=== PATIENT | male | born 1940 | race Caucasian/White ===

== ENCOUNTER 2017-03-30 20:09 | Emergency (ER) | payer OTHER ==
[2017-03-30] MEDS ORDERED: MORPHINE 2 MG/ML SYRINGE IVP STA (20:17)
[2017-03-30] MEDS ORDERED: ZOFRAN 4 MG/2 ML IVP STA ×2 (20:17→21:25)
[2017-03-30 20:27] VITALS: BP 144/77; TEMP 101.4; BMI 32.1
[2017-03-30 20:46] LABS: BASOPHILS % (AUTO) 0.6 % (0.0-3.0); EOSINOPHILS % (AUTO) 0.7 % (0.0-7.0); HEMATOCRIT 39.9 % (42.0-52.0); HEMOGLOBIN 13.2 g/dl (14.0-18.0); IMMATURE GRANULOCYTE % (AUTO) 0.4 % (0.0-5.0); LYMPHOCYTES # (AUTO) 0.4 K/uL (0.60-3.4); LYMPHOCYTES % (AUTO) 6.5 (10.0-50.0); MEAN CORPUSCULAR HEMOGLOBIN 30.7 pg (27.0-31.0); MEAN CORPUSCULAR HGB CONC 33.1 (31.8-35.4); MEAN CORPUSCULAR VOLUME 92.8 fl (80.0-94.0); MONOCYTES # (AUTO) 0.4 K/uL (0.4-2.0); MONOCYTES % (AUTO) 6.5 (0-10); NEUTROPHILS # (AUTO) 4.6 K/ul (2.0-6.9); NEUTROPHILS % (AUTO) 85.3; PLATELET COUNT 136 10^3/uL (140-440); WHITE BLOOD COUNT 5.38 K/ul (4.2-10.2)
--- NOTE | 2017-03-30 20:50 | ED.PDOC ---
General ED Provider: Dr. SHIRLEY MCKEON Chief Complaint: Nausea/Vomiting Stated Complaint: been feeling nauseous for whole day, travelling [facility], from [place]. last time he felt like this had SD,. also has more fluid in legs and belly. Time Seen by Physician: 20:48 Mode of Arrival: Walk-In Information Source: Patient Nursing and Triage Documentation Reviewed and Agree: Yes GI Complaint Exam - Vomiting/Diarrhea Complaint/Exam Onset/Duration: been feeling nausea. Symptoms Are: Still present Episodes of Vomiting over last 24 Hours: 0 Initial Severity: Mild Current Severity: Mild Aggravating: Reports: Food, Liquids, Position, Movement Alleviating: Reports: None Associated Signs and Symptoms: Denies: Dizziness, Light-headedness, Melena, Hematemesis, Fever, Abdominal pain, Cramping Non-GI Risk Factors: Reports: None Surgical Obstruction Risk Factors: Reports: None Related Surgical History: Reports: None Abdominal Findings: Present: Abdominal distention. Absent: Pulsatile mass Differential Diagnoses: Gastritis, Other (CAD) Review of Systems - Review Of Systems Constitutional: Reports: Malaise, Weakness Eyes: Reports: No symptoms Ears, Nose, Mouth, Throat: Reports: No symptoms Respiratory: Reports: No symptoms Cardiac: Reports: No symptoms GI: Reports: Nausea : Reports: No symptoms Musculoskeletal: Reports: No symptoms Skin: Reports: No symptoms Neurological: Reports: No symptoms Endocrine: Reports: No symptoms Hematologic/Lymphatic: Reports: No symptoms All Other Systems: Reviewed and Negative Past Medical History - Past Medical History Previously Healthy: Yes Endocrine: Reports: Dyslipidemia Cardiovascular: Reports: CAD, Hypertension, CHF Respiratory: Reports: COPD Hematological: Reports: None Gastrointestinal: Reports: None Genitourinary: Reports: None Neuro/Psych: Reports: None Musculoskeletal: Reports: None Cancer: Reports: None - Surgical History General Surgical History: Reports: Cholecystectomy, CABG, Pacemaker - Family History Family History: Reports: None - Social History Smoking Status: Never smoker Hx Substance Use: No Alcohol Screening: Occasionally - Immunizations Tetanus Shot up to Date: No Physical Exam - Physical Exam Appearance: Ill-appearing, Obese Ill-appearing: Mild Eyes: TOYA, EOMI, Conjunctiva clear ENT: Ears normal, Nose normal, Oropharynx normal Respiratory: Airway patent, Breath sounds clear, Breath sounds equal, Respirations nonlabored Cardiovascular: RRR, Pulses normal, No rub, No murmur GI/: Soft, Nontender, Bowel sounds hypoactive Musculoskeletal: Edema Skin: Warm, Dry, Normal color Neurological: Sensation intact, Motor intact, Reflexes intact, Cranial nerves intact, Alert, Oriented Psychiatric: Affect appropriate, Mood appropriate Interpretation - Radiology Interpretation Radiology Interpretation By: Radiologist Radiology Results: Negative Exam Interpreted: CT Scan Re-Evaluation - Re-Evaluation Time of Re-Evaluation: 21:31 Status: Improved Critical Care Note - Critical Care Note Total Time (mins): 0 Course - Course Hematology/Chemistry: 03/30/17 20:30 03/30/17 20:30 Orders, Labs, Meds: Lab Review 03/30/17 03/30/17 03/30/17 20:30 20:30 20:30 WBC 5.38 RBC 4.30 L Hgb 13.2 L Hct 39.9 L MCV 92.8 MCH 30.7 MCHC 33.1 RDW Coeff of Shayy 14.6 Plt Count 136 L Immature Gran % (Auto) 0.4 Neut % (Auto) 85.3 Lymph % (Auto) 6.5 L [place] % (Auto) 6.5 Eos % (Auto) 0.7 Baso % (Auto) 0.6 Immature Gran # (Auto) 0.0 Neut # 4.6 Lymph # 0.4 L [place] # 0.4 Eos # 0.0 Baso # 0.0 PT INR Sodium 143 Potassium 4.1 Chloride 110 H Carbon Dioxide 21 L Anion Gap 16.1 BUN 20 H Creatinine 1.10 Estimated GFR (MDRD) 65.00 BUN/Creatinine Ratio 18.18 Glucose 132 H Lactic Acid Calcium 9.0 Total Bilirubin 1.78 H AST 20 ALT 20 Alkaline Phosphatase 90 Total Creatine Kinase 133 CK-MB (CK-2) 1.0 CK-MB (CK-2) % 0.55955 Troponin I 0.0340 B-Natriuretic Peptide 148 H Total Protein 6.7 Albumin 3.6 Globulin 3.1 Albumin/Globulin Ratio 1.16 Amylase 85 Lipase 100 H Procalcitonin Urine Color Urine Clarity Urine pH Ur Specific [place] Urine Protein Urine Glucose (UA) Urine Ketones Urine Blood Urine Nitrite Urine Bilirubin Urine Urobilinogen Ur Leukocyte Esterase Urine Microscopic WBC Ur Squamous Epith Cells Urine Bacteria Urine Mucus 03/30/17 03/30/17 03/30/17 20:30 20:30 20:30 WBC RBC Hgb Hct MCV MCH MCHC RDW Coeff of Shayy Plt Count Immature Gran % (Auto) Neut % (Auto) Lymph % (Auto) [place] % (Auto) Eos % (Auto) Baso % (Auto) Immature Gran # (Auto) Neut # Lymph # [place] # Eos # Baso # PT 23.5 H INR 2.36 Sodium Potassium Chloride Carbon Dioxide Anion Gap BUN Creatinine Estimated GFR (MDRD) BUN/Creatinine Ratio Glucose Lactic Acid 11.9 Calcium Total Bilirubin AST ALT Alkaline Phosphatase Total Creatine Kinase CK-MB (CK-2) CK-MB (CK-2) % Troponin I B-Natriuretic Peptide Total Protein Albumin Globulin Albumin/Globulin Ratio Amylase Lipase Procalcitonin 0.05 Urine Color Urine Clarity Urine pH Ur Specific [place] Urine Protein Urine Glucose (UA) Urine Ketones Urine Blood Urine Nitrite Urine Bilirubin Urine Urobilinogen Ur Leukocyte Esterase Urine Microscopic WBC Ur Squamous Epith Cells Urine Bacteria Urine Mucus 03/30/17 21:14 WBC RBC Hgb Hct MCV MCH MCHC RDW Coeff of Shayy Plt Count Immature Gran % (Auto) Neut % (Auto) Lymph % (Auto) [place] % (Auto) Eos % (Auto) Baso % (Auto) Immature Gran # (Auto) Neut # Lymph # [place] # Eos # Baso # PT INR Sodium Potassium Chloride Carbon Dioxide Anion Gap BUN Creatinine Estimated GFR (MDRD) BUN/Creatinine Ratio Glucose Lactic Acid Calcium Total Bilirubin AST ALT Alkaline Phosphatase Total Creatine Kinase CK-MB (CK-2) CK-MB (CK-2) % Troponin I B-Natriuretic Peptide Total Protein Albumin Globulin Albumin/Globulin Ratio Amylase Lipase Procalcitonin Urine Color Yellow Urine Clarity Clear Urine pH 5.0 Ur Specific [place] >=1.030 Urine Protein Trace Urine Glucose (UA) Negative Urine Ketones Negative Urine Blood Negative Urine Nitrite Negative Urine Bilirubin 1+ Urine Urobilinogen 1.0 Ur Leukocyte Esterase Trace Urine Microscopic WBC 0-2 Ur Squamous Epith Cells 0-2 Urine Bacteria Trace Urine Mucus 1+ Orders Category Date Time Status EKG-(ED ONLY) Stat CARDIO 03/30/17 20:17 Ordered ED IV/MEDIPORT/POWERPORT .ONCE EMERGENCY 03/30/17 20:17 Active AMYLASE Stat LAB 03/30/17 20:30 Completed B-TYPE NATRIURETIC PEPTIDE Stat LAB 03/30/17 20:30 Completed BLOOD CULTURE Stat LAB 03/30/17 20:22 Received CBC W/ AUTO DIFF Stat LAB 03/30/17 20:30 Completed COMPREHENSIVE METABOLIC PANEL Stat LAB 03/30/17 20:30 Completed CREATINE KINASE Stat LAB 03/30/17 20:30 Completed LACTIC ACID Stat LAB 03/30/17 20:30 Completed LIPASE Stat LAB 03/30/17 20:30 Completed PROCALCITONIN Stat LAB 03/30/17 20:30 Completed PT WITH INR Stat LAB 03/30/17 20:30 Completed TROPONIN I Stat LAB 03/30/17 20:30 Completed UA [URINALYSIS C & S IF INDICATED] Stat LAB 03/30/17 21:14 Completed 0.9 % Sodium Chloride [Saline Flush] MEDS 03/30/17 20:17 Ordered 1 syr IVF PRN PRN Ondansetron HCl/Pf [Zofran 4 mg/2 ml] MEDS 03/30/17 21:25 Stat 4 mg IVP ONCE STA CHEST, 1V AP ONLY Stat RADS 03/30/17 20:[address] ABDOMEN/PELVIS WO CONTRAST Stat RADS 03/30/17 20:[address] CHEST W/O CONTRAST Stat RADS 03/30/17 20:21 Completed Medications Generic Name Dose Route Start Last Admin Trade Name Freq PRN Reason Stop Dose Admin Sodium Chloride 1 syr 03/30/17 20:17 Saline Flush IVF PRN PRN To flush IV Discontinued Medications Generic Name Dose Route Start Last Admin Trade Name Freq PRN Reason Stop Dose Admin Ondansetron HCl 4 mg 03/30/17 21:25 Zofran 4 Mg/2 Ml IVP 03/30/17 21:26 ONCE STA Vital Signs: Temp Pulse Resp BP Pulse Ox 03/30/17 20:10 101.4 F H 75 20 144/77 H 97 Departure - Departure Time of Disposition: 21:31 Disposition: HOME SELF-CARE Discharge Problem: Gastritis Qualifiers: Gastritis type: unspecified gastritis Chronicity: acute Gastritis bleeding: without bleeding Qualified Code(s): K29.00 - Acute gastritis without bleeding Instructions: Gastritis (ED) Condition: Good Pt referred to PMD for follow-up: Yes Additional Instructions: patient he is feeling better, soft diet for 3- 4 days No salt diet. Prescriptions: Ondansetron [Zofran Odt] 4 mg PO Q8H #20 tab.rapdis Allergies/Adverse Reactions: Allergies spironolactone Adverse Reaction (Verified 03/30/17 20:45) Home Medications: Ambulatory Orders Amlodipine Besylate [Norvasc] 2.5 mg PO DAILY 03/30/17 Colchicine 0.6 mg PO DAILY 03/30/17 Furosemide [Lasix] 40 mg PO BID 03/30/17 Glimepiride [Amaryl] 6 mg PO DAILY 03/30/17 Lisinopril 20 mg PO DAILY 03/30/17 Metoprolol Succinate 25 mg PO DAILY 03/30/17 Nitroglycerin 0.4 mg PO DAILY 03/30/17 Omeprazole 50 mg PO DAILY 03/30/17 Ondansetron [Zofran Odt] 4 mg PO Q8H #20 tab.rapdis 03/30/17 Pioglitazone HCl 15 mg PO DAILY 03/30/17 Potassium Chloride 20 meq PO DAILY 03/30/17 Pravastatin Sodium [Pravachol] 40 mg PO DAILY 03/30/17 Sitagliptin Phosphate [Januvia] 100 mg PO DAILY 03/30/17 Trazodone HCl 50 mg PO DAILY 03/30/17 Warfarin Sodium [Coumadin] 5 mg PO DAILY 03/30/17 Disposition Discussed With: Patient
[2017-03-30 20:58] LABS: PROTHROMBIN TIME 23.5 SEC (9.3-11.0)
--- NOTE | 2017-03-30 21:12 | CT ---
EXAM: CT scan of the abdomen and pelvis without contrast HISTORY: Nausea TECHNIQUE: Imaging of the abdomen and pelvis was performed without contrast. 3 mm thin axial images and coronal and sagittal images were provided for interpretation. FINDINGS: The liver, spleen, pancreas, adrenal glands and kidneys appear normal. The proximal urete rs are normal size. There has been previous cholecystectomy. The small and large bowel loops are norm al caliber. There is mild dilatation of the stomach. A fluid filled stomach is identified. There is no wall thickening. There is no free air. No retroperitoneal abnormalities are seen. The helical images obtained through the pelvis demonstrate a normal appearance of the rectum, urinary bladder. There is no free fluid seen within the pelvis. The appendix was not seen. No definite inf lammatory changes are seen in the right lower quadrant. Scattered diverticula are seen within the de scending colon and sigmoid colon without acute inflammation. Lung bases are clear. No lytic or smiley tic lesions are seen within the osseous structures. IMPRESSION: There is mild dilatation of the stomach by fluid and this may represent gastroparesis in the appropriate clinical setting.. There is no bowel obstruction. Diverticular disease of the distal colon without acute inflammation.
[2017-03-30 21:17] LABS: BILIRUBIN,URINE 1+ (NEGATIVE); KETONES,URINE Negative (NEGATIVE); LEUKOCYTE ESTERASE ,URINE Trace (NEGATIVE); NITRITE,URINE Negative (NEGATIVE); PROTEIN,URINE Trace (NEGATIVE); URINE, BLOOD Negative (NEGATIVE)
[2017-03-30 21:19] LABS: ALBUMIN 3.6 g/dL (3.4-5.0); ALBUMIN/GLOBULIN RATIO 1.16; ANION GAP 16.1; BILIRUBIN,TOTAL 1.78 mg/dL (0.00-1.20); BUN/CREATININE RATIO 18.18; CREATININE 1.1 mg/dL (0.60-1.10); POTASSIUM 4.1 mmol/L (3.5-5.1); TOTAL PROTEIN 6.7 g/dL (5.8-8.1); TROPONIN I 0.034 ng/ml (0.0000-0.4000)
--- NOTE | 2017-03-30 21:19 | CT ---
EXAM: CT scan of the chest without contrast HISTORY: Shortness of breath TECHNIQUE: Imaging of the chest was performed without contrast. 5 mm thin axial images and coronal and sagittal images were provided for interpretation. FINDINGS: The heart is it in the upper limits of normal in size. There is atherosclerotic calcifica tion of the aorta and coronary arteries. Midline sternotomy wires are seen. There is no consolidati on. No definite infiltrates are seen. Mild subpleural emphysematous changes are seen within the nadja gs. No lytic or blastic lesions are seen within the osseous structures. There has been previous cho lecystectomy. IMPRESSION: Mild pulmonary emphysema. No evidence of infiltrate or consolidation. There has been previous midline sternotomy.
[2017-03-30 21:23] LABS: ADD URINE MICROSCOPIC YES; BACTERIA,URINE TRACE (NOT PRESENT)
--- NOTE | 2017-03-31 07:40 | DI ---
EXAM: Single view of the chest. History: Chest pain. Comparison: Chest CT 03/30/2017 Findings: Heart is enlarged. No focal consolidation. No appreciable pleural fluid and no pneumotho rax. Pacer device. Atherosclerotic vascular calcifications. Sternotomy wires. No acute osseous ab normalities. Impression: Cardiomegaly without acute disease in the chest.
== END 2017-03-30 21:55 | disposition home or self-care (01) ==
LOC: ED 20:09
DX: K29.00 Acute gastritis without bleeding (principal); I25.2 Old myocardial infarction; R53.1 Weakness; E78.5 Hyperlipidemia, unspecified; I25.810 Atherosclerosis of coronary artery bypass graft(s) without angina pectoris; I10 Essential (primary) hypertension; I50.9 Heart failure, unspecified; J44.9 Chronic obstructive pulmonary disease, unspecified; Z79.01 Long term (current) use of anticoagulants; Z79.899 Other long term (current) drug therapy
CPT/HCPCS: 36415; 80053; 81001; 82150; 82550; 82553; 83605; 83690; 83880; 84145; 84484; 85025; 85610; 87040; 93005; 93010; 96375; 99285